=== PATIENT | female | born 1985 | race Caucasian/White ===

== ENCOUNTER 2022-02-25 14:50 | Emergency (ER) | payer SELFPAY ==
[~2022-02-25] VITALS: Ht 160 cm; Wt 86.8 kg
[2022-02-25 16:11] LABS: BASO % 0 % (0-3); EOS % 0 % (0-3); HEMATOCRIT 41.3 % (36.0-47.0); HEMOGLOBIN 14.2 g/dL (12.0-15.5); LYMPH # 0.8 x10^3/uL (1.0-4.8); LYMPH % 14 % (24-48); MEAN CORPUSCULAR HEMOGLOBIN 29 pg (25-35); MEAN CORPUSCULAR HGB CONC 34 g/dL (31-37); MEAN CORPUSCULAR VOLUME 85 fL (79-100); MONO # 0.5 x10^3/uL (0.0-1.1); MONO % 9 % (0-9); NEUT # 4.7 x10^3/uL (1.8-7.7); NEUT % 78 % (31-73); PLATELET COUNT 263 x10^3/uL (140-400); RED BLOOD COUNT 4.89 x10^6/uL (3.50-5.40); RED CELL DISTRIBUTION WIDTH 13.5 % (11.5-14.5); WHITE BLOOD COUNT 6.1 x10^3/uL (4.0-11.0)
[2022-02-25] MEDS ORDERED: hydrOXYzine IM 50 MG/ML VIAL IM ONE (16:15)
[2022-02-25] MEDS ORDERED: KETOROLAC 15 MG/ML VIAL. IVP ONE (16:15)
[2022-02-25 16:23] LABS: CALCIUM 8.5 mg/dL (8.5-10.1); CREATININE 0.4 mg/dL (0.6-1.0); GFR 181.6
[2022-02-25 16:24] LABS: BACTERIA,URINE FEW /HPF (0-FEW); WBC,URINE OCC /HPF (0-4)
[2022-02-25 16:29] LABS: ALBUMIN 2.9 g/dL (3.4-5.0); ALBUMIN/GLOBULIN RATIO 0.7 (1.0-1.7); TOTAL BILIRUBIN 0.4 mg/dL (0.2-1.0); TOTAL PROTEIN 6.8 g/dL (6.4-8.2)
[2022-02-25] MEDS ORDERED: ONDANSETRON PF 4 MG/2 ML VIAL. IVP ONE (16:30)
--- NOTE | 2022-02-25 16:30 | RAD ---
EXAM: XR CHEST 1V 02/25/2022 4:22 PM CLINICAL INDICATION: Chest pain, shortness of breath COMPARISON: None TECHNIQUE: AP upright view of the chest FINDINGS: The heart is normal in size. The lungs are adequately expanded. Mild scattered interstitia l opacities in the left lung and possibly in the right lung. No pleural effusion or pneumothorax. IMPRESSION: Mild scattered interstitial opacities, suspicious for atypical infection. Electronically signed by: Bianca Thompson MD (02/25/2022 4:27 PM) [id number]
--- NOTE | 2022-02-25 16:38 | PHYS DOC ---
Past Medical History Past Medical History: Anxiety, Depression Additional Past Medical Histor: COVID 10/2021 Past Surgical History: No Surgical History Smoking Status: Current Every Day Smoker Additional Information: Attempt to quit 02/16 Alcohol Use: None General Adult EDM: Chief Complaint: NAUSEA/VOMITING/DIARRHEA HPI: HPI: Patient is a 36 year old female who presents via EMS with 5 day history of cough, shortness of breath, fever, nausea, vomiting and weakness. Patient states the pain in her abdomen is bothering her the most. The pain she feels in her chest is exacerbated with cough and deep inspiration. She states she was diagnosed with COVID-19 in October of this year, but she feels worse today. Patient measured her temperature at 102 F at its highest. She also states she feels anxious. Patient denies hematemesis, bloody stool, constipation, sputum production. Review of Systems: Review of Systems: ROS negative or noncontributory except as mentioned in HPI. Heart Score: C/O Chest Pain: No Current Medications: Current Medications Medications (Trade) Dose Ordered Sig/Golden Start Time Stop Time Status Last Admin Dose Admin Hydroxyzine HCl (Vistaril Im) 25 mg 1X ONCE 02/25/22 16:15 02/25/22 16:16 Ketorolac Tromethamine (Toradol 15mg Vial) 15 mg 1X ONCE 02/25/22 16:15 02/25/22 16:16 Allergies: Allergies: Allergies Coded Allergies Type Severity Reaction Last Updated Verified azithromycin Allergy Intermediate unknown 02/25/22 Yes cephalexin Allergy Intermediate unknown 02/25/22 Yes latex Allergy Intermediate unknown 02/25/22 Yes Physical Exam: PE: Constitutional: Well developed, well nourished, patient appears anxious non- toxic appearance. HENT: Normocephalic, atraumatic, bilateral external ears normal, nose normal. Eyes: EOMI, conjunctiva normal, no discharge. Neck: Normal range of motion, no stridor. Cardiovascular: Heart regular rate and rhythm. No apparent murmurs, rubs or gallops. Lungs & Thorax: Equal thoracic expansion, no increased work of breathing, breath sounds clear to auscultation in all lung moody. Abdomen: Bowel sounds normal, soft, diffuse tenderness without rebound or guarding, no masses, no pulsatile masses. Skin: Warm, dry, no erythema, no rash. Neurologic: Alert and oriented x4, normal motor function, normal sensory function, no focal deficits noted. Current Patient Data: Labs: Laboratory Tests Test 02/25/22 15:36 02/25/22 15:40 02/25/22 15:44 02/25/22 16:23 Urine Collection Type Unknown Urine Color (Auto) Yellow Urine Turbidity Hazy Urine pH (Auto) 6.0 (<5.0-8.0) Urine Specific [place] 1.026 (1.000-1.030) Urine Protein (Auto) 30 mg/dL (Negative) Urine Glucose (Auto)(UA) Negative mg/dL (Negative) Urine Ketones (Auto) >150 mg/dL (Negative) Urine Blood (Auto) Small (Negative) Urine Nitrite Negative (Negative) Urine Bilirubin (Auto) Negative (Negative) Urine Urobilinogen (Auto) Normal mg/dL (Normal) Urine Leukocyte Esterase (Auto) Negative (Negative) Urine RBC 3-5 /HPF (0-2) Urine WBC Occ /HPF (0-4) Urine Squamous Epithelial Cells Mod /LPF Urine Bacteria Few /HPF (0-FEW) Urine Mucus Mod /LPF White Blood Count 6.1 x10^3/uL (4.0-11.0) Red Blood Count 4.89 x10^6/uL (3.50-5.40) Hemoglobin 14.2 g/dL (12.0-15.5) Hematocrit 41.3 % (36.0-47.0) Mean Corpuscular Volume 85 fL (79-100) Mean Corpuscular Hemoglobin 29 pg (25-35) Mean Corpuscular Hemoglobin Concent 34 g/dL (31-37) Red Cell Distribution Width 13.5 % (11.5-14.5) Platelet Count 263 x10^3/uL (140-400) Neutrophils (%) (Auto) 78 % (31-73) Lymphocytes (%) (Auto) 14 % (24-48) Monocytes (%) (Auto) 9 % (0-9) Eosinophils (%) (Auto) 0 % (0-3) Basophils (%) (Auto) 0 % (0-3) Neutrophils # (Auto) 4.7 x10^3/uL (1.8-7.7) Lymphocytes # (Auto) 0.8 x10^3/uL (1.0-4.8) Monocytes # (Auto) 0.5 x10^3/uL (0.0-1.1) Eosinophils # (Auto) 0.0 x10^3/uL (0.0-0.7) Basophils # (Auto) 0.0 x10^3/uL (0.0-0.2) Sodium Level 139 mmol/L (136-145) Potassium Level 4.0 mmol/L (3.5-5.1) Chloride Level 103 mmol/L (98-107) Carbon Dioxide Level 23 mmol/L (21-32) Anion Gap 13 (6-14) Blood Urea Nitrogen 10 mg/dL (7-20) Creatinine 0.4 mg/dL (0.6-1.0) Estimated GFR (Cockcroft-Gault) 181.6 BUN/Creatinine Ratio 25 (6-20) Glucose Level 105 mg/dL (70-99) Calcium Level 8.5 mg/dL (8.5-10.1) Total Bilirubin 0.4 mg/dL (0.2-1.0) Aspartate Amino Transf (AST/SGOT) 23 U/L (15-37) Alanine Aminotransferase (ALT/SGPT) 20 U/L (14-59) Alkaline Phosphatase 73 U/L (46-116) Troponin I High Sensitivity 21 ng/L (4-50) Total Protein 6.8 g/dL (6.4-8.2) Albumin 2.9 g/dL (3.4-5.0) Albumin/Globulin Ratio 0.7 (1.0-1.7) Lipase 20 U/L (73-393) Bedside Urine HCG, Qualitative Hcg negative (Negative) Influenza Type A Antigen Negative (NEGATIVE) Influenza Type B Antigen Negative (NEGATIVE) SARS-CoV-2 Antigen (Rapid) Negative (NEGATIVE) Vital Signs: Vital Signs Date Time Temp Pulse Resp B/P (MAP) Pulse Ox O2 Delivery O2 Flow Rate FiO2 02/25/22 17:14 74 24 124/59 (80) 94 02/25/22 16:44 84 22 137/78 (97) 93 02/25/22 16:14 127/14 (51) 02/25/22 15:02 99.4 87 22 114/71 (85) 96 Room Air 99.4 EKG: EKG: EKG Interpreted by Dr. Mancini, taken at 1508: Regular rate and rhythm 86 bpm with no ectopic beats. QT 352 ms/QTc 424 ms. No STEMI. Radiology/Procedures: Radiology/Procedures: PROCEDURE: PORTABLE CHEST 1V EXAM: XR CHEST 1V 02/25/2022 4:22 PM CLINICAL INDICATION: Chest pain, shortness of breath COMPARISON: None TECHNIQUE: AP upright view of the chest FINDINGS: The heart is normal in size. The lungs are adequately expanded. Mild scattered interstitial opacities in the left lung and possibly in the right lung. No pleural effusion or pneumothorax. IMPRESSION: Mild scattered interstitial opacities, suspicious for atypical infection. Electronically signed by: Bianca Thompson MD (02/25/2022 4:27 PM) [id number] Course & Med Decision Making: Course & Med Decision Making Pertinent Labs and Imaging studies reviewed. (See chart for details) Patient is a 36 year old female who presents with multiple symptoms. She was diagnosed with COVID-19 in October of this year. She reports her current symptoms are worse and that she is very anxious. Patient treated with hydroxyzine, toradol, zofran, IV fluids with minimal improvement. She then received pepcid, protonix and GI coctail. Her abdominal pain is better con trolled. Patient provided with incentive spirometer to encourage full lung expansion and prevent worsening SOB. Saturations have remained within normal limits during stay in the department. Patient was given supportive treatment measures and instruction to follow up with primary care and encouraged to stop smoking (she states she has not had a cigarette in 3 days). Patient understands and is agreeable to discharge plan. Dragon Disclaimer: Dragon Disclaimer: This electronic medical record was generated, in whole or in part, using a voice recognition dictation system. 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 We trust that you had a positive experience in our Emergency Department. If you wish to speak to the department management, you may call the director at . YOUR FOLLOW UP INSTRUCTIONS ARE FOLLOWS: 1. Follow up with your primary care doctor. If you do not have a primary doctor, please ask for a resource list of physicians or clinics that may be able to assist you with follow up care. 2. The emergency provider has interpreted your imaging studies, if any were ordered. The radiology imaging administrator also reviewed them. If there is a change in the findings, you will be notified in 48 hours when at all possible. 3. If a lab test or culture has been done, your results will be reviewed and you will be notified if you need a change in treatment. 4. Follow instructions verbalized to you and refer to the printouts if needed. ADDITIONAL INSTRUCTIONS AND INFORMATION: 1. Your care today has been supervised by a physician who is specially trained in emergency care. Many problems require more than one evaluation for a complete diagnosis and treatment. We recommend that you schedule your follow up appointment as recommended to ensure complete treatment of you illness or injury. If you are unable to obtain follow up care and continue to have a problem, or if your condition worsens, we recommend that you return to the ED. 2. We are not able to safely determine your condition over the phone nor are we able to give sound medical advice over the phone. For these safety reasons, if you call for medical advice we will ask you to come to the ED for further evaluation. 3. If you have any questions regarding these discharge instructions please call the ED at . SAFETY INFORMATION: In the interest of safety, wellness, and injury prevention; we encourage you to wear your seat belt, if you smoke; quite smoking, and we encourage family to use a protective helmet for bicycling and other sporting events that present an increased risk for head injury. IF YOUR SYMPTOMS WORSEN OR NEW SYMPTOMS DEVELOP, OR YOU HAVE CONCERNS ABOUT YOUR CONDITION; OR IF YOUR CONDITION WORSENS WHILE YOU ARE WAITING FOR YOUR FOLLOW UP APPOINTMENT; EITHER CONTACT YOUR PRIMARY CARE DOCTOR, THE PHYSICIAN WHOSE NAME AND NUMBER YOU WERE GIVEN, OR RETURN TO THE ED IMMEDIATELY. Scripts Omeprazole (OMEPRAZOLE) 20 Mg Capsule. 1 CAP PO DAILY, #30 CAP 0 Refills Prov: BULL MOELLER 02/25/22 Ondansetron (ONDANSETRON ODT) 4 Mg Tab.rapdis 1 TAB PO PRN Q6-8HRS, #20 TAB Prov: BULL MOELLER 02/25/22 BULL MOELLER February 25, 2022 16:38
[2022-02-25 16:45] LABS: INFLUENZA A PATIENT NEGATIVE (NEGATIVE); INFLUENZA B PATIENT NEGATIVE (NEGATIVE)
[2022-02-25] MEDS ORDERED: FAMOTIDINE 20 MG/2 ML VIAL IVP ONE (16:45)
[2022-02-25] MEDS ORDERED: LIDO:MAALOX 1:1 20 ML SINGLE DOSE. SWSW ONE (17:00)
[2022-02-25] MEDS ORDERED: PANTOPRAZOLE IV PUSH 40 MG VIAL. IVP ONE (17:00)
[2022-02-25] MEDS ORDERED: ONDA4TAB12 PO (18:06)
[2022-02-25] MEDS ORDERED: OMEP20CA16 PO (18:06)
[2022-02-25 18:20] VITALS: BP 131/69
== END 2022-02-25 18:25 | disposition home or self-care (01) ==
LOC: ER 14:50
DX: K29.70 Gastritis, unspecified, without bleeding (principal); U09.9 Post COVID-19 condition, unspecified; F41.9 Anxiety disorder, unspecified; Z20.822 Contact with and (suspected) exposure to COVID-19; F17.200 Nicotine dependence, unspecified, uncomplicated; Z88.1 Allergy status to other antibiotic agents; Z91.040 Latex allergy status
CPT/HCPCS: 71045; 80053; 81001; 81025; 83690; 84484; 85025; 87428; 96372; 96374; 96375; 99285; C9113; C9803; J1885; J2405; J3410; J3490; U0003